=== PATIENT | male | born 1990 | race Caucasian/White ===

== ENCOUNTER 2017-07-17 20:54 | Inpatient (IN) | payer BC, OTHER ==
[~2017-07-17] VITALS: Ht 195.6 cm; Wt 190.5 kg
[2017-07-18] MEDS ORDERED: MAG HYDROX/AL HYDROX/SIMETH 30 ML LIQUID UDC PO PRN (02:15)
[2017-07-18] MEDS ORDERED: ACETAMINOPHEN 325 MG TABLET PO PRN (02:15)
[2017-07-18] MEDS ORDERED: MIRALAX 17 GM POWD.PACK PO PRN (02:15)
[2017-07-18] MEDS ORDERED: LOPERAMIDE HCL 2 MG CAPSULE PO PRN (02:15)
[2017-07-18] MEDS ORDERED: CLONIDINE HCL 0.1 MG TABLET PO PRN (02:15)
[2017-07-18] MEDS ORDERED: LORAZEPAM 1 MG TABLET PO PRN ×2 (02:15)
[2017-07-18] MEDS ORDERED: MAGNESIUM HYDROXIDE 30 ML LIQUID UDC PO PRN (02:15)
[2017-07-18] MEDS ORDERED: ONDANSETRON ODT 4 MG TAB.RAPDIS SL PRN (02:15)
[2017-07-18] MEDS ORDERED: BUPRENORPHINE HCL 2 MG TAB.SUBL SL PRN (02:15)
[2017-07-18] MEDS ORDERED: THIAMINE HCL 200 MG/2 ML VIAL IM ONE (02:15)
[2017-07-18] MEDS ORDERED: METHOCARBAMOL 750 MG TABLET PO PRN (02:15)
[2017-07-18] MEDS ORDERED: DICYCLOMINE HCL 20 MG TABLET PO PRN (02:15)
[2017-07-18] MEDS ORDERED: LORAZEPAM 2 MG/1 ML VIAL IM PRN (02:15)
[2017-07-18] MEDS ORDERED: ONDANSETRON 4 MG/2 ML VIAL IM PRN (02:15)
[2017-07-18] MEDS ORDERED: IBUPROFEN 600 MG TABLET PO PRN (02:15)
[2017-07-18 02:34] LABS: BASOPHILS # (AUTO) 0.1 K/uL (0.0-8.0); BASOPHILS % (AUTO) 0.9 % (0.0-2.0); EOSINOPHILS # (AUTO) 0.2 K/uL (0.0-0.7); HEMATOCRIT 42.1 % (36.7-47.1); HEMOGLOBIN 14.9 g/dL (12.5-16.3); LYMPHOCYTES # (AUTO) 2.5 K/uL (20.0-40.0); LYMPHOCYTES % (AUTO) 22.4 % (20.5-51.5); MEAN CORPUSCULAR HGB CONC 35 g/dL (32.5-36.3); MEAN CORPUSCULAR VOLUME 90.2 fL (73.0-96.2); MONOCYTES # (AUTO) 0.5 K/uL (2.0-10.0); MONOCYTES % (AUTO) 4.8 % (0.0-11.0); NEUTROPHILS % (AUTO) 69.9 % (38.5-71.5); PLATELET COUNT (AUTO) 305 K/uL (152-348); RED BLOOD CELL COUNT(AUTO) 4.66 MIL/uL (4.06-5.63); WHITE BLOOD COUNT (AUTO) 11.4 K/uL (3.6-10.2)
[2017-07-18 02:44] LABS: ETHANOL < 3 MG/DL (0-0)
--- NOTE | 2017-07-18 03:05 | NUR ---
PRE - ADMISSION NOTE : The patient is a 27 year-old male who came to [facility] for medically supervised withdrawal from Heroin, ETOH Vodka and Beer. The patient denies a history of withdrawal-induced seizures. Pt. denies history of SI/HI. Upon assessment, pt is alert and oriented x4 , the patient reported the following symptoms of withdrawal: anxiety, restlessness, difficulty concentrating, anhedonia. Pt denies chest pain or SOB. PERRLA. Breathing is even and unlabored. Lung sounds clear in all lobes, abdomen is soft, pt complains of constipation related to opiate use. IJ=209/85, RN=896, SpO2=98% with RA, RR=16, Temp=98.1. Height=65, Phduso=[id number]. Last BM on 07/16/2017. CIWA=5, COWS=5. Pt's skin is warm, dry and intact. Pt. will be admitted to the unit.
[2017-07-18 03:10] LABS: *AMPHETAMINE, URINE POSITIVE (NEGATIVE); *BARBITURATE, URINE NEGATIVE (NEGATIVE); *CANNABINOID, URINE NEGATIVE (NEGATIVE); *COCCAINE, URINE NEGATIVE (NEGATIVE); *OPIATE, URINE POSITIVE (NEGATIVE); *PHENCYCLIDINE SCREEN,URINE NEGATIVE (NEGATIVE)
[2017-07-18 03:13] LABS: ALANINE AMINOTRANSFERASE 67 U/L (16-63); ALKALINE PHOSPHATASE 89 U/L (50-136); AMYLASE 36 U/L (25-115); ASPARTATE AMINOTRANSFERASE 86 U/L (15-37); BILIRUBIN,TOTAL 1.7 mg/dL (0.2-1.0); CARBON DIOXIDE 26 mmol/L (21-32); CHLORIDE 97 mmol/L (98-107); CREATININE 0.9 mg/dL (0.6-1.3); GLUCOSE 124 mg/dL (74-106); LIPASE 65 U/L (73-393); MAGNESIUM 2.1 mg/dL (1.8-2.4); POTASSIUM 3.6 mmol/L (3.5-5.1); TOTAL PROTEIN, SERUM 8.4 g/dL (6.4-8.2); UREA NITROGEN, BLOOD 8 mg/dL (7-18)
[2017-07-18 03:21] LABS: THYROID STIMULATING HORMONE 5.569 mIU/mL (0.358-3.740)
[2017-07-18 04:00] VITALS: BP 140/85
--- NOTE | 2017-07-18 04:00 | NUR ---
ADMISSION NOTE : The patient is a 27 year-old male who admitted to [facility] for medically supervised withdrawal from Heroin, ETOH Vodka and Beer. He was admitted on 07/17/2017 at 03:09. Pt. is Full Code, on Reg. Diet, NKA. Pt. is on FALL precautions. He doesnt have any Primary Care Provider at this time. The patient denies a history of withdrawal-induced seizures. Pt. denies history of SI/HI. He states the cause of his ongoing and frequent use have been due to difficulty coping with stress, controlling impulsivity, cravings, and treatment of negative withdrawal symptoms. He states his substance use has negatively impacted his life by impairing close relationships, negatively impacting his physical and mental health. He states that learning how to control impulses, cope with anxiety, and staying adherent to long-term treatment are barriers. He will have to overcome to achieve full, long-term sobriety. Upon assessment, pt is alert and oriented x4 , the patient reported the following symptoms of withdrawal: anxiety, restlessness, difficulty concentrating, anhedonia. Pt denies chest pain or SOB. PERRLA. Breathing is even and unlabored. Lung sounds clear in all lobes, abdomen is soft, pt complains of constipation related to opiate use. WG=052/85, ZT=351, SpO2=98% with RA, RR=16, Temp=98.1. Height=65, Pjxttc=[id number]. Last BM on 07/16/2017. CIWA=5, COWS=5. Pt's skin is warm, dry and intact. Pt was oriented to room and unit. Pt. was able to provide UDS sample , blood drawn , see results in the PC chart. Safety measures in place : bed on lowest position with side rails x2 up for safety, call light within reach. Will continue to monitor closely and offer help. SUBSTANCE ABUSE HISTORY : 1. HEROIN 1gm QD smokes last 4 mo., last use on 07/17/2017 , uses since 2011 2.ETOH/VODKA QD 750ml last 4 years , last use 07/17/2017 , uses since 2001 3. ETOH/BEER 2,000ml QD s.2010 , last use 07/17/2017 , uses since 2001 Pt. smokes 10 cig. QD and uses Cocaine and Meth occasionally x1/month. PAST Tx HISTORY : It is his first Detox PAST MEDICAL HISTORY : Obesity, Migraine, Anxiety, Bipolar, ADHD Past Family History Obesity, Anxiety, Bipolar, DMII , HTN, Hypothyroidizm and Pancreatic Ca.
--- NOTE | 2017-07-18 06:20 | NUR ---
END OF SHIFT NOTE : The patient is a 27 year-old male who admitted to [facility] for medically supervised withdrawal from Heroin, ETOH Vodka and Beer. The patient denies a history of withdrawal-induced seizures. Pt. denies history of SI/HI. Pt remains compliant with the treatment plan. No PRNs were given during my shift. V/S remain WNL. RR=16, even and unlabored, lungs clear upon auscultation, abdomen soft and non- distended. Pt denies nausea, vomiting and diarrhea. CIWA and COWS taken when pt. was alert during the night, LAST CIWA= 5 ,COWS= 5 at 0400 , CUCZDP=461 ml, voided x1 , slept 2 hours. Safety measures in place : bed on lowest position with side rails x2 up for safety, call light within reach. Will continue to monitor closely and offer help.
--- NOTE | 2017-07-18 07:10 | NUR ---
Start of Shift [employer] received report on 27 year old male admitted to [facility] on 07/18/17 for Heroin and ETOH `detoxification. Pt has NKDA, is a full code and eats a regular diet. Pt has a PMH of migraines, anxiety, Bi-polar and ADHD, with no reported seizure history. Pt admitted in early am and does not have any taper medications ordered. Last COWS 5, CIWA 5 on admission. 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 Pt is calm and cooperative and able to make needs known. Pt has no complaints or concerns and requests to be allowed to go back to sleep. Pt in no stress. Bed in low position, wheels locked and side rails up x2. Will continue to monitor, support and encourage according to plan of care.
[2017-07-18 08:15] VITALS: BP 140/88
[2017-07-18] MEDS: THIAMINE HCL 100 MG TABLET PO SCH (09:00)
[2017-07-18] MEDS: FOLIC ACID 1 MG TABLET PO SCH (09:00)
[2017-07-18] MEDS: MULTIVITAMINS,THERAPEUTIC TABLET PO SCH (10:31)
[2017-07-18] MEDS ORDERED: NICOTINE 14 MG/24HR PATCH TD PRN (11:30)
[2017-07-18] MEDS ORDERED: NICOTINE POLACRILEX 4 MG GUM-PK OF TEN BC PRN (11:30)
[2017-07-18] MEDS: LOPERAMIDE HCL 2 MG CAPSULE PO PRN ×2 (11:43→20:41)
[2017-07-18] MEDS: LORAZEPAM 1 MG TABLET PO SCH ×3 (11:43→20:41)
--- NOTE | 2017-07-18 11:45 | NUR ---
PRN Imodium/Bentyl Pt c/o of stomach discomfort and diarrhea. Pt requesting medication to help with symptoms. [employer] administered medications per MD order with pt tolerating well. Will continue to monitor, support and encourage according to plan of care.
[2017-07-18 12:21] VITALS: BP 140/89
--- NOTE | 2017-07-18 12:45 | NUR ---
PRN Re-Assessment Pt endorses some minor relief from stomach cramps, with no reports of diarrhea. Will continue to monitor, support and encourage according to plan of care.
[2017-07-18 16:45] VITALS: BP 136/86
--- NOTE | 2017-07-18 19:10 | NUR ---
End of Shift Bank Courier provided report on 27 year old male admitted to [facility] on 07/18/17 for Heroin and ETOH `detoxification. Pt has NKDA, is a full code and eats a regular diet. Pt has a PMH of migraines, anxiety, Bi-polar and ADHD, with no reported seizure history. Pt is currently on a Ativan taper, started this shift and will be started on Subutex taper at 2100. MD was ready to start pt on Subutex taper today, but pt made request to not start until 2100. Pt was administered Bentyl and Imodium PRN with pt endorsing effectiveness. Last COWS 10 and CIWA 8 at 1600. Pt is calm and cooperative and able to make needs known. Pt has been isolative to room and has been resting most of day. Pt is appropriate with staff and polite with requests. Bed in low position, wheels locked and side rails up x2. Will continue to monitor, support and encourage according to plan of care.
--- NOTE | 2017-07-18 19:30 | NUR ---
Start of Shift Note Received a 27 year old male admitted on 07/18/17 for Heroin and ETOH dependence. Px has NKA, is a full code and on regular diet. Px has a PMHx of migraines, anxiety, Bi-polar and ADHD, with no reported seizure history. During the rounds at 1930, px complained of LBM, body aches of 6/10 and mild to moderate anxiety. Bed in low position, wheels locked and side rails up x2. We'll continue to monitor.
[2017-07-18 20:00] VITALS: BP 129/81
[2017-07-18] MEDS: GABAPENTIN 300 MG CAPSULE PO SCH (20:40)
[2017-07-18] MEDS ORDERED: BUPRENORPHINE HCL 2 MG TAB.SUBL SL SCH (21:00)
--- NOTE | 2017-07-18 22:27 | NUR ---
PRN meds Px complained for LBM, body pains, heart nieves and nausea. At 2039, Motrin 600 mg/tab, 1 tab given PO; Imodium 2 capsules given PO as PRN meds. At 2226, Zofran 4 mg/tab, 1 tab given SL and Ativan 1 mg/tab, 1 tab given PO. At 2239, Maalox 30 ml given PO as PRN meds. We'll continue to monitor.
[2017-07-19] VITALS: BP 127/78
[2017-07-19 04:00] VITALS: BP 121/74
--- NOTE | 2017-07-19 04:00 | NUR ---
COWS and CIWA deferred COWS and CIWA deferred at 0000 and 0400 due to px is asleep, to assess if the px awake per doctor's order. We'll continue to monitor.
--- NOTE | 2017-07-19 06:58 | NUR ---
End of Shift Note 27 year old male admitted on 07/18/17 for Heroin and ETOH dependence. Px has NKA, is a full code and on regular diet. Px has a PMHx of migraines, anxiety, Bi-polar and ADHD, with no reported seizure history. During the shift, px complained of mild to moderate anxiety, LBM, body pains 6/10, heart nieves and nausea. At 2039, Motrin 600 mg/tab, 1 tab given PO; Imodium 2 capsules given PO as PRN meds. At 2226, Zofran 4 mg/tab, 1 tab given SL and Ativan 1 mg/tab, 1 tab given PO. At 2239, Maalox 30 ml given PO as PRN meds. Oral intake of 1 L, voided 2x, BM 3x. Slept for 7 hours. Bed is in low position, wheels locked and side rails up x2. We'll continue to monitor.
[2017-07-19 08:00] VITALS: BP 140/90
[2017-07-19] MEDS: GABAPENTIN 300 MG CAPSULE PO SCH ×3 (08:57→21:27)
[2017-07-19] MEDS: LORAZEPAM 1 MG TABLET PO SCH ×3 (08:57→21:28)
[2017-07-19] MEDS: FOLIC ACID 1 MG TABLET PO SCH (08:57)
[2017-07-19] MEDS: THIAMINE HCL 100 MG TABLET PO SCH (08:57)
[2017-07-19] MEDS: BUPRENORPHINE HCL 2 MG TAB.SUBL SL SCH ×3 (08:57→21:27)
[2017-07-19] MEDS: MULTIVITAMINS,THERAPEUTIC TABLET PO SCH (08:57)
[2017-07-19] MEDS ORDERED: TUBERCULIN,PURIF.PROT.DERIV. 5 TU/0.1 ML TEST ID ONE (09:00)
[2017-07-19 10:07] LABS: HEPATITIS B SURFACE AG Negative (Negative)
--- NOTE | 2017-07-19 10:13 | NUR ---
Start of shift note; Received report from night nurse. Patient is a 27 year old male admitted on 07/18/17 to detoxify from Opiate/ ETOH. Patient was placed on Ativana nd Subutex tapers. Patient reported history of obesity, migraine, anxiety, bipolar and ADHD. NKA< on a regular diet and on a full code status. Will continue to monitor patient.
[2017-07-19 12:00] VITALS: BP 130/88
[2017-07-19] MEDS ORDERED: METHYL SALICYLATE/MENTHOL CREAM 28 GM TUBE TOP PRN (12:15)
[2017-07-19 16:00] VITALS: BP 130/91
--- NOTE | 2017-07-19 18:22 | NUR ---
End of shift note; Patient is AOX4. Patient remained compliant with treatment plan and medication regime. Medications noted to be effective in reducing withdrawal symptoms. Patient participated in group activities and therapies. All safety measures secured. Met all needs.
--- NOTE | 2017-07-19 19:20 | NUR ---
START OF SHIFT Patient is a 27-year-old male admitted on 07/18/17 for heroin and ETOH dependence. Patient is FULL code status, with NKA, on a regular diet. Patient has a past medical history of anxiety, bipolar disorder, migraines, obesity, and ADHD. Patient is on fall and seizure precautions with no history of seizure. Patient is currently on a 5-day Ativan and 5-day Subutex taper, tolerating well. Upon assessment, patient is alert and oriented x4, skin dry and intact, complaining of low back pain, 6/10 on pain scale. Safety measures in place, bed locked in low position, side rails up x2, call light within reach. Will continue to monitor.
[2017-07-19 20:00] VITALS: BP 145/84
[2017-07-19] MEDS: BACLOFEN 10 MG TABLET PO SCH (21:27)
--- NOTE | 2017-07-19 21:27 | NUR ---
PRN ROBAXIN Patient reports pain at his lower back of 6/10 on pain scale. PRN Robaxin given PO. Respirations even and unlabored. Safety measures in place, bed locked in low position, side rails up x2, call light within reach. Will reassess in one hour.
[2017-07-19] MEDS: CLONIDINE HCL 0.1 MG TABLET PO SCH (21:28)
[2017-07-19] MEDS: diphenhydrAMINE 50 MG CAPSULE PO PRN (21:45)
--- NOTE | 2017-07-19 21:45 | NUR ---
PRN BENADRYL Patient requests sleep aid. PRN Benadryl given PO. Respirations even and unlabored. Safety measures in place, bed locked in low position, side rails up x2, call light within reach. Will reassess in one hour.
--- NOTE | 2017-07-19 22:27 | NUR ---
PRN ROBAXIN REASSESSMENT Patient reports pain at 4/10 for lower back. PRN Robaxin effective. Safety measures in place, bed locked in low position, side rails up x2, call light within reach. Will continue to monitor.
--- NOTE | 2017-07-19 22:45 | NUR ---
PRN BENADRYL REASSESSMENT Patient reports feeling sleepy, seen resting in bed with eyes closed. PRN Benadryl effective. Safety measures in place, bed locked in low position, side rails up x2, call light within reach. Will continue to monitor.
[2017-07-20] VITALS: BP 124/77
[2017-07-20 04:00] VITALS: BP 131/85
[2017-07-20 06:47] LABS: BASOPHILS # (AUTO) 0.1 K/uL (0.0-8.0); BASOPHILS % (AUTO) 0.8 % (0.0-2.0); EOSINOPHILS # (AUTO) 0.2 K/uL (0.0-0.7); EOSINOPHILS % (AUTO) 1.5 % (0.0-7.0); HEMATOCRIT 41.4 % (36.7-47.1); HEMOGLOBIN 14.6 g/dL (12.5-16.3); LYMPHOCYTES # (AUTO) 3.6 K/uL (20.0-40.0); LYMPHOCYTES % (AUTO) 28.2 % (20.5-51.5); MEAN CORPUSCULAR HEMOGLOBIN 32.3 uug (23.8-33.4); MEAN CORPUSCULAR HGB CONC 35 g/dL (32.5-36.3); MEAN CORPUSCULAR VOLUME 91.2 fL (73.0-96.2); MONOCYTES # (AUTO) 0.8 K/uL (2.0-10.0); MONOCYTES % (AUTO) 5.9 % (0.0-11.0); NEUTROPHILS # (AUTO) 8.2 K/uL (1.8-8.9); NEUTROPHILS % (AUTO) 63.6 % (38.5-71.5); PLATELET COUNT (AUTO) 270 K/uL (152-348); RED BLOOD CELL COUNT(AUTO) 4.54 MIL/uL (4.06-5.63); WHITE BLOOD COUNT (AUTO) 12.9 K/uL (3.6-10.2)
[2017-07-20 06:55] LABS: BILIRUBIN,DIRECT 0.2 mg/dL (0.0-0.2); CREATININE 0.9 mg/dL (0.6-1.3); MAGNESIUM 2.1 mg/dL (1.8-2.4); POTASSIUM 3.6 mmol/L (3.5-5.1); TOTAL PROTEIN, SERUM 7.3 g/dL (6.4-8.2)
[2017-07-20 07:06] LABS: THYROID STIMULATING HORMONE 3.736 mIU/mL (0.358-3.740)
--- NOTE | 2017-07-20 07:15 | NUR ---
END OF SHIFT Patient is a 27-year-old male admitted on 07/18/17 for heroin and ETOH dependence. Patient is FULL code status, with NKA, on a regular diet. Patient has a past medical history of anxiety, bipolar disorder, migraines, obesity, and ADHD. Patient is on fall and seizure precautions with no history of seizure. Patient is currently on a 5-day Ativan and 5-day Subutex taper, tolerating well. Patient slept for 6 hours, total intake 796 mL, void x3, stool x0. PRN Robaxin and Benadryl given. Last COWS score was 5, last CIWA was 6. Safety measures in place, bed locked in low position, side rails up x2, call light within reach. Will endorse to day shift.
--- NOTE | 2017-07-20 07:24 | NUR ---
Start of shift note; Received report from night nurse. Patient is a 27 year old male admitted on 07/18/17 to detoxify from Opiate/ ETOH. Patient was placed on Ativan and Subutex tapers. Patient reported history of obesity, migraine, anxiety, bipolar and ADHD. NKA, on a regular diet and on a full code status. Patient's last COWS is 5 and last CIWA 6. Will continue to monitor patient.
[2017-07-20] MEDS: GABAPENTIN 300 MG CAPSULE PO SCH ×2 (08:13→14:21)
[2017-07-20] MEDS: FOLIC ACID 1 MG TABLET PO SCH (08:13)
[2017-07-20] MEDS: CLONIDINE HCL 0.1 MG TABLET PO SCH ×2 (08:14→21:44)
[2017-07-20] MEDS: MULTIVITAMINS,THERAPEUTIC TABLET PO SCH (08:14)
[2017-07-20] MEDS: LORAZEPAM 1 MG TABLET PO SCH ×3 (08:14→16:42)
[2017-07-20] MEDS: BACLOFEN 10 MG TABLET PO SCH ×3 (08:14→21:43)
[2017-07-20] MEDS: THIAMINE HCL 100 MG TABLET PO SCH (08:14)
[2017-07-20] MEDS ORDERED: BUPRENORPHINE HCL 2 MG TAB.SUBL SL SCH (09:00)
[2017-07-20] MEDS ORDERED: HYDROXYZINE PAMOATE 25 MG CAPSULE PO PRN (09:00)
[2017-07-20 09:03] VITALS: BP 125/81
[2017-07-20 12:00] VITALS: BP 133/86
[2017-07-20] MEDS ORDERED: KETOROLAC TROMETHAMINE 30 MG INJ IM PRN (12:30)
[2017-07-20] MEDS: CARBAMIDE PEROXIDE OTIC DROP 15 ML BOTTLE LEFT EAR SCH ×2 (14:20→21:00)
[2017-07-20] MEDS: BUPRENORPHINE HCL 2 MG TAB.SUBL SL SCH ×2 (14:21→21:43)
--- NOTE | 2017-07-20 14:41 | NUR ---
Therapist prompted client to attend groups. Client agreed to come,
[2017-07-20 16:00] VITALS: BP 130/90
--- NOTE | 2017-07-20 18:27 | NUR ---
End of shift note; Patient is AOX4. Patient remained compliant with treatment plan and medication regime. Medications noted to be effective in reducing withdrawal symptoms. Patient participated in group activities and therapies. Patient's last COWS scroe is 3 and last CIWA is 2. All safety measures secured. Met all needs.
--- NOTE | 2017-07-20 19:15 | NUR ---
START OF SHIFT NOTE : Patient is a 27 year old male admitted on 07/18/17 to detoxify from Opiate/ ETOH. Patient was placed on Ativan and Subutex tapers. Patient reported history of obesity, migraine, anxiety, bipolar and ADHD. NKA, on a regular diet and on a full code status. Pt. is admitting meeting at this time. Safety measures in place : bed on lowest position with side rails x2 up for safety, call light within reach. Will continue to monitor closely and offer help.
[2017-07-20 20:00] VITALS: BP 142/89
[2017-07-20] MEDS ORDERED: GABAPENTIN 300 MG CAPSULE PO SCH (21:00)
[2017-07-20] MEDS ORDERED: LORAZEPAM 1 MG TABLET PO SCH (21:00)
--- NOTE | 2017-07-20 21:00 | NUR ---
PRN BENADRYL Pt. complains of sleeplessness. PRN BENADRYL given as ordered. Safety measures in place : bed on lowest position with side rails x2 up for safety, call light within reach. Will continue to monitor closely and offer help.
[2017-07-20] MEDS: diphenhydrAMINE 50 MG CAPSULE PO PRN (21:43)
--- NOTE | 2017-07-20 22:00 | NUR ---
RE-ASSESSMENT FUAD Pt. is sleeping, RR=16 unlabored and even. Safety measures in place : bed on lowest position with side rails x2 up for safety, call light within reach. Will continue to monitor closely and offer help.
--- NOTE | 2017-07-21 06:33 | NUR ---
END OF SHIFT NOTE : Patient is a 27 year old male admitted on 07/18/17 to detoxify from Opiate/ ETOH. Patient was placed on Ativan and Subutex tapers. Patient reported history of obesity, migraine, anxiety, bipolar and ADHD. NKA, on a regular diet and on a full code status. Pt remains compliant with the treatment plan. PRN BENADRYL given during my shift. V/S remain WNL. RR=16, even and unlabored, lungs clear upon auscultation, abdomen soft and non- distended. Pt denies nausea, vomiting and diarrhea. CIWA and COWS taken when pt. was alert during the night, LAST CIWA= 2,COWS=4 at 0400 , TKGEYM=0847 ml, voided x4 , slept 7 hours. Safety measures in place : bed on lowest position with side rails x2 up for safety, call light within reach. Will continue to monitor closely and offer help.
--- NOTE | 2017-07-21 07:36 | NUR ---
Start of shift note; Received report from night nurse. Patient is a 27 year old male admitted on 07/18/17 to detoxify from Opiate/ ETOH. Patient was placed on Ativan and Subutex tapers. Patient reported history of obesity, migraine, anxiety, bipolar and ADHD. NKA, on a regular diet and on a full code status. Patient's last COWS is 4 and last CIWA 2. Patient had an uneventful night. Will continue to monitor patient.
[2017-07-21 08:00] VITALS: BP 117/64
[2017-07-21] MEDS: THIAMINE HCL 100 MG TABLET PO SCH (08:53)
[2017-07-21] MEDS: GABAPENTIN 300 MG CAPSULE PO SCH ×3 (08:53→21:10)
[2017-07-21] MEDS: CARBAMIDE PEROXIDE OTIC DROP 15 ML BOTTLE LEFT EAR SCH ×2 (08:53→21:00)
[2017-07-21] MEDS: MULTIVITAMINS,THERAPEUTIC TABLET PO SCH (08:53)
[2017-07-21] MEDS: BUPRENORPHINE HCL 2 MG TAB.SUBL SL SCH ×3 (08:53→21:09)
[2017-07-21] MEDS: LIDOCAINE 5% PATCH TD SCH (08:54)
[2017-07-21] MEDS: CLONIDINE HCL 0.1 MG TABLET PO SCH ×3 (08:54→21:10)
[2017-07-21] MEDS: LORAZEPAM 1 MG TABLET PO SCH ×3 (08:54→21:10)
[2017-07-21] MEDS: BACLOFEN 10 MG TABLET PO SCH (08:54)
[2017-07-21] MEDS: FOLIC ACID 1 MG TABLET PO SCH (08:54)
[2017-07-21] MEDS ORDERED: AZITHROMYCIN 250 MG TABLET PO ONE (09:00)
[2017-07-21 12:00] VITALS: BP 132/88
--- NOTE | 2017-07-21 13:46 | NUR ---
Therapist prompted client to come to terms with group. client agreed to come.
[2017-07-21] MEDS: SERTRALINE HCL 50 MG TABLET PO SCH (14:11)
[2017-07-21] MEDS: BACLOFEN 20 MG TABLET PO SCH ×2 (14:11→21:09)
[2017-07-21 16:00] VITALS: BP 122/83
--- NOTE | 2017-07-21 18:46 | NUR ---
End of shift note; Patient is AOX4. Patient remained compliant with treatment plan and medication regime. Medications noted to be effective in reducing withdrawal symptoms. Patient participated in group activities and therapies. Patient's last COWS score is 3 and last CIWA is 1. All safety measures secured. Met all needs.
--- NOTE | 2017-07-21 19:15 | NUR ---
START OF SHIFT NOTE : Patient is a 27 year old male admitted on 07/18/17 to detoxify from Opiate/ ETOH. Patient was placed on Ativan and Subutex tapers. Patient reported history of obesity, migraine, anxiety, bipolar and ADHD. NKA, on a regular diet and on a full code status. Pt. is in his room, watching TV, he complains of sleeplessness. Safety measures in place : bed on lowest position with side rails x2 up for safety, call light within reach. Will continue to monitor closely and offer help.
[2017-07-21 20:24] VITALS: BP 118/74
[2017-07-21] MEDS: diphenhydrAMINE 50 MG CAPSULE PO PRN (21:09)
--- NOTE | 2017-07-22 06:40 | NUR ---
END OF SHIFT NOTE : Patient is a 27 year old male admitted on 07/18/17 to detoxify from Opiate/ ETOH. Patient was placed on Ativan and Subutex tapers. Patient reported history of obesity, migraine, anxiety, bipolar and ADHD. NKA, on a regular diet and on a full code status. Pt remains compliant with the treatment plan. PRN BENADRYL given during my shift. V/S remain WNL. RR=16, even and unlabored, lungs clear upon auscultation, abdomen soft and non- distended. Pt denies nausea, vomiting and diarrhea. CIWA and COWS taken when pt. was alert during the night, LAST CIWA= 2,COWS=3 at 0400 , VVKPYS=9867 ml, voided x3 , slept 8 hours. Safety measures in place : bed on lowest position with side rails x2 up for safety, call light within reach. Will continue to monitor closely and offer help.
--- NOTE | 2017-07-22 07:11 | NUR ---
Start of shift note; Received report from night nurse. Patient is a 27 year old male admitted on 07/18/17 to detoxify from Opiate/ ETOH. Patient was placed on Ativan and Subutex tapers. Patient reported history of obesity, migraine, anxiety, bipolar and ADHD. NKA, on a regular diet and on a full code status. Patient had an uneventful night. Will continue to monitor patient.
[2017-07-22 08:00] VITALS: BP 128/69
[2017-07-22] MEDS: BACLOFEN 20 MG TABLET PO SCH ×3 (08:04→20:25)
[2017-07-22] MEDS: AZITHROMYCIN 250 MG TABLET PO SCH (08:04)
[2017-07-22] MEDS: GABAPENTIN 300 MG CAPSULE PO SCH ×3 (08:04→20:25)
[2017-07-22] MEDS: FOLIC ACID 1 MG TABLET PO SCH (08:04)
[2017-07-22] MEDS: CLONIDINE HCL 0.1 MG TABLET PO SCH ×2 (08:05→14:02)
[2017-07-22] MEDS: LIDOCAINE 5% PATCH TD SCH (08:05)
[2017-07-22] MEDS: THIAMINE HCL 100 MG TABLET PO SCH (08:05)
[2017-07-22] MEDS: LORAZEPAM 1 MG TABLET PO SCH ×2 (08:05→20:25)
[2017-07-22] MEDS: MULTIVITAMINS,THERAPEUTIC TABLET PO SCH (08:05)
[2017-07-22] MEDS: CARBAMIDE PEROXIDE OTIC DROP 15 ML BOTTLE LEFT EAR SCH ×2 (08:05→20:29)
[2017-07-22] MEDS: SERTRALINE HCL 50 MG TABLET PO SCH (08:05)
[2017-07-22] MEDS: BUPRENORPHINE HCL 2 MG TAB.SUBL SL SCH ×2 (08:06→20:25)
[2017-07-22 12:00] VITALS: BP 136/86
[2017-07-22 16:00] VITALS: BP 138/91
--- NOTE | 2017-07-22 18:15 | NUR ---
End of shift note; Patient is AOX4. Patient remained compliant with treatment plan and medication regime. Medications noted to be effective in reducing withdrawal symptoms. Patient participated in group activities and therapies. Patient's last COWS score is 2 and last CIWA is 1. No PRN medications given. All safety measures secured. Met all needs.
--- NOTE | 2017-07-22 19:15 | NUR ---
START OF SHIFT NOTE : Patient is a 27 year old male admitted on 07/18/17 to detoxify from Opiate/ ETOH. Patient was placed on Ativan and Subutex tapers. Patient reported history of obesity, migraine, anxiety, bipolar and ADHD. NKA, on a regular diet and on a full code status. Pt. is out of his room, participating in the meeting, complains of sleeplessness. Safety measures in place : bed on lowest position with side rails x2 up for safety, call light within reach. Will continue to monitor closely and offer help.
[2017-07-22 20:00] VITALS: BP 150/85
[2017-07-22] MEDS: diphenhydrAMINE 50 MG CAPSULE PO PRN (20:25)
[2017-07-22] MEDS: CLONIDINE HCL 0.2 MG TABLET PO SCH (20:26)
--- NOTE | 2017-07-23 06:38 | NUR ---
END OF SHIFT NOTE : Patient is a 27 year old male admitted on 07/18/17 to detoxify from Opiate/ ETOH. Patient was placed on Ativan and Subutex tapers. Patient reported history of obesity, migraine, anxiety, bipolar and ADHD. NKA, on a regular diet and on a full code status. Pt remains compliant with the treatment plan. PRN BENADRYL given during my shift. V/S remain WNL. RR=16, even and unlabored, lungs clear upon auscultation, abdomen soft and non- distended. Pt denies nausea, vomiting and diarrhea. CIWA and COWS taken when pt. was alert during the night, LAST CIWA=1,COWS=4 at 0400 , ACZLBI=4741 ml, voided x3 , slept 6 hours. Safety measures in place : bed on lowest position with side rails x2 up for safety, call light within reach. Will continue to monitor closely and offer help.
--- NOTE | 2017-07-23 07:30 | NUR ---
START OF SHIFT Pt 27 y/o male admitted for heroin/ etoh-vodka and beer dependence. Pt received in room on bed with eyes closed resting, but easily arousable to name. Pt alert and oriented to name, place, and time. Perrla. Skin warm and slightly moist to touch. It was reported that pt slept for 6 hours last night. Bed on lowest position with side rails x2 up for safety. Call light within reach. No distress noted at this time.
[2017-07-23 08:00] VITALS: BP 121/64
[2017-07-23] MEDS: BACLOFEN 20 MG TABLET PO SCH ×3 (08:18→20:25)
[2017-07-23] MEDS: AZITHROMYCIN 250 MG TABLET PO SCH (08:19)
[2017-07-23] MEDS: CLONIDINE HCL 0.1 MG TABLET PO SCH ×2 (08:19→14:09)
[2017-07-23] MEDS: MULTIVITAMINS,THERAPEUTIC TABLET PO SCH (08:19)
[2017-07-23] MEDS: LIDOCAINE 5% PATCH TD SCH (08:19)
[2017-07-23] MEDS: GABAPENTIN 300 MG CAPSULE PO SCH ×3 (08:19→20:25)
[2017-07-23] MEDS: FOLIC ACID 1 MG TABLET PO SCH (08:19)
[2017-07-23] MEDS: THIAMINE HCL 100 MG TABLET PO SCH (08:19)
[2017-07-23] MEDS: SERTRALINE HCL 50 MG TABLET PO SCH (08:19)
[2017-07-23] MEDS: CARBAMIDE PEROXIDE OTIC DROP 15 ML BOTTLE LEFT EAR SCH ×2 (08:29→20:25)
[2017-07-23] MEDS ORDERED: LORAZEPAM 1 MG TABLET PO SCH (09:00)
[2017-07-23] MEDS ORDERED: BUPRENORPHINE HCL 2 MG TAB.SUBL SL SCH (09:00)
[2017-07-23] MEDS ORDERED: NORMAL SALINE NASAL 45 ML BOTTLE NS PRN (11:15)
[2017-07-23 12:00] VITALS: BP 131/85
[2017-07-23] MEDS ORDERED: HYDR-3895 PO (14:44)
[2017-07-23] MEDS ORDERED: GABA-534 PO (14:44)
[2017-07-23] MEDS ORDERED: BACL20TA PO (14:44)
[2017-07-23] MEDS ORDERED: IBUP-1955 PO (14:44)
[2017-07-23] MEDS ORDERED: CLON0.2T12 PO (14:44)
[2017-07-23] MEDS ORDERED: LIDO30AD10 TD (14:44)
[2017-07-23] MEDS ORDERED: DICY20TA28 PO (14:44)
[2017-07-23] MEDS ORDERED: DIPH50CA37 PO (14:44)
[2017-07-23] MEDS ORDERED: CLON0.1T14 PO (14:44)
[2017-07-23 16:00] VITALS: BP 137/79
--- NOTE | 2017-07-23 18:41 | NUR ---
END OF SHIFT Pt 27 y/o male admitted for heroin/ etoh-vodka and beer dependence. Pt alert and oriented to name, place, and time. Perrla. Skin warm and slightly moist to touch. Pt observed mostly in recreational room throughout the day. Pt attended group actvity. Pt was seen by MD today. Pt medication compliant and tolerated well. No ASE noted. Bed on lowest position with side rails x2 up for safety. Call light within reach. No distress noted at this time.
--- NOTE | 2017-07-23 19:15 | NUR ---
Start of Shift Note: Patient is a 27 y.o male admitted on 07/18/17 for ETOH and Opiate dependence. Patient has PMhx of Obesity, Migraine, Anxiety, Bipolar and ADHD. Patient is on a regular diet with no known food and drug allergies. Full Code status. Patient completed his Subutex and Ativan taper and is scheduled to be discharge tomorrow/ Last COWS 3 CIWA 1 noted. Patient did not receive any PRN medication during day shift. Patient is alert & oriented x4. Patient is ambulatory with a steady gait. No shortness of breath noted. Respiration even & unlabored. Abdomen soft & non-distended. No nausea noted. Patient reports stuffy nose and anxiety. Patient denies pain/discomfort, sweating, chills, diarrhea & restlessness. No hand tremors noted. Safety precautions are in place. Bed locked in lowest position. Both side rails up. Call light within pts reach. Will continue to monitor patient.
[2017-07-23 20:00] VITALS: BP 139/82
[2017-07-23] MEDS: CLONIDINE HCL 0.2 MG TABLET PO SCH (20:25)
--- NOTE | 2017-07-24 | NUR ---
Vitals/COWS/CIWA deferred Patient asleep in bed and appears comfortable. Patient requested not to be woken up for vitals. COWS & CIWA deferred. No s/s of distress noted. Respiration even & unlabored. Safety measures in place. Will continue to monitor patient.
--- NOTE | 2017-07-24 07:09 | NUR ---
End of Shift Note: Patient had an uneventful night. Patient is a 23 y.o male on 07/17/17 for ETOH and Opiate use. Patient completed his Subutex and Ativan taper and is scheduled to be discharge today and is going home. Patient verbalized readiness to be discharge and stated that he will be going to [facility] after discharge. Last COWS 3 CIWA 1. Patient did not received any PRN medications. Continued to monitor signs and symptoms of withdrawal. Vitals monitored closely and noted to be within normal limits. Patient remained stable with No s/s of distress noted. Patient slept for a total of 6 hours. Fluid intake: 2184 ml. Voided 2x with no bowel movement. All needs attended & met. Safety measures in place. Will endorse pt to day shift nurse.
--- NOTE | 2017-07-24 07:41 | NUR ---
BEGINNING OF SHIFT Patient endorsement report received from evening or night nurse supervisor nurse, all pertinent information discussed. Patient is a 27 year old male with admitting Dx: ETOH dependence. Patient under close observation. Patient completed Ativan and Subutex taper and is scheduled to be discharged home this morning, patient received no PRN during evening or night nurse supervisor. patient with last cow: 3, and ciwa:2. Patient received awake, alert and oriented x4, educated regarding plan of care for the day and medication regimen will also educate regarding all discharge instructions. safety measures in place. call light kept with in reach. all needs met and rendered, call light kept with in reach, will continue to monitor closely.
[2017-07-24 08:33] VITALS: BP 138/88
[2017-07-24] MEDS ORDERED: SERTRALINE HCL 100 MG TABLET PO SCH (09:00)
[2017-07-24] MEDS ORDERED: SERTRALINE HCL 50 MG TABLET PO SCH (09:00)
[2017-07-24 09:09] VITALS: BP 138/88
[2017-07-24] MEDS: AZITHROMYCIN 250 MG TABLET PO SCH (09:09)
[2017-07-24] MEDS: GABAPENTIN 300 MG CAPSULE PO SCH (09:09)
[2017-07-24] MEDS: THIAMINE HCL 100 MG TABLET PO SCH (09:09)
[2017-07-24] MEDS: CLONIDINE HCL 0.1 MG TABLET PO SCH (09:09)
[2017-07-24] MEDS: FOLIC ACID 1 MG TABLET PO SCH (09:09)
[2017-07-24] MEDS: BACLOFEN 20 MG TABLET PO SCH (09:09)
[2017-07-24] MEDS: LIDOCAINE 5% PATCH TD SCH (09:10)
[2017-07-24] MEDS: CARBAMIDE PEROXIDE OTIC DROP 15 ML BOTTLE LEFT EAR SCH (09:10)
[2017-07-24] MEDS: MULTIVITAMINS,THERAPEUTIC TABLET PO SCH (09:10)
--- NOTE | 2017-07-24 10:35 | NUR ---
DISCHARGE Patient discharged at 1035 in stable condition, patient discharged to home, vital signs wnl. No s/sx of withdrawal. patient noted self motivated towards sobriety. Patients was educated and provided with teaching regarding all discharge instructions with good verbal understanding. Patients discharge instructions and prescriptions were placed in patients personal bag. Patient off the unit at 1035 in stable condition.
== END 2017-07-24 10:35 | disposition home or self-care (01) | DRG 895 ==
LOC: SRC 07-18 01:03
PROVIDERS: ADMIT Internal Medicine; ATTEND Internal Medicine
PROC: HZ2ZZZZ Detoxification Services for Substance Abuse Treatment (ICD-10-PCS; principal; 2017-07-18)
PROC: HZ41ZZZ Group Counseling for Substance Abuse Treatment, Behavioral (ICD-10-PCS; 2017-07-19)
PROC: HZ31ZZZ Individual Counseling for Substance Abuse Treatment, Behavioral (ICD-10-PCS; 2017-07-20)
DX: F10.230 Alcohol dependence with withdrawal, uncomplicated (principal); E66.01 Morbid (severe) obesity due to excess calories; I15.9 Secondary hypertension, unspecified; E87.8 Other disorders of electrolyte and fluid balance, not elsewhere classified; Z68.42 Body mass index [BMI] 45.0-49.9, adult; E87.1 Hypo-osmolality and hyponatremia; F11.23 Opioid dependence with withdrawal; Y90.0 Blood alcohol level of less than 20 mg/100 ml; Z83.3 Family history of diabetes mellitus; Z81.8 Family history of other mental and behavioral disorders; Z80.0 Family history of malignant neoplasm of digestive organs; G43.909 Migraine, unspecified, not intractable, without status migrainosus; Z71.3 Dietary counseling and surveillance; F41.9 Anxiety disorder, unspecified; Z59.1 Inadequate housing; F90.9 Attention-deficit hyperactivity disorder, unspecified type; F14.10 Cocaine abuse, uncomplicated; F17.210 Nicotine dependence, cigarettes, uncomplicated; F15.10 Other stimulant abuse, uncomplicated; R74.0 Nonspecific elevation of levels of transaminase and lactic acid dehydrogenase [LDH]; R73.9 Hyperglycemia, unspecified; F31.9 Bipolar disorder, unspecified; E07.81 Sick-euthyroid syndrome; H61.22 Impacted cerumen, left ear; J06.9 Acute upper respiratory infection, unspecified; H66.92 Otitis media, unspecified, left ear; E86.1 Hypovolemia; F13.10 Sedative, hypnotic or anxiolytic abuse, uncomplicated
CPT/HCPCS: 36415; 70030-TC; 80307; 80324; 80361; 83690; 83735; 84443; 85025; 86580; 86592; 86705; 86803; 87340; 87806; A4663; G0480; Q0144; Q0162; Q0163